=== PATIENT | male | born 1940 | race Caucasian/White ===

== ENCOUNTER 2016-07-29 10:32 | Emergency (ER) | payer OTHER ==
[~2016-07-29] VITALS: Ht 177.8 cm; Wt 84.4 kg
[2016-07-29 11:19] LABS: MCH 31.1 PG (29.0-34.0); MCHC 32.9 G/DL (30.0-36.0); MCV 94.5 FL (86-99); MEAN PLAT.VOLUME 10.6 uM^3 (9.0-12.4); PLATELET COUNT 145 K/uL (156-360); RBC DIS.WIDTH-CV 12.6 % (11.8-14.6); RBC DIS.WIDTH-SD 43.9 % (39-53); RED BLOOD COUNT 4.76 M/uL (4.00-5.50); WHITE BLOOD COUNT 9.6 K/uL (4.1-10.2)
[2016-07-29 11:30] LABS: CHLORIDE 109 mEq/L (99-109); POTASSIUM 4.7 mEq/L (3.7-5.4); SODIUM 144 mEq/L (136-147)
[2016-07-29 11:33] LABS: GLUCOSE 162 mg/dL (70-99)
[2016-07-29 11:34] LABS: ANION GAP 10 MEQ/L (2-14); TOTAL BILIRUBIN 1.3 mg/dL (0.0-1.0)
[2016-07-29 11:36] LABS: ALKALINE PHOSPHATASE 56 IU/L (3-129); GFR ESTIMATE (CALCULATED) 39 mL/min/
[2016-07-29 11:37] LABS: UREA NITROGEN (BUN) 34 mg/dL (9-23)
[2016-07-29 13:14] LABS: ADD MIUA? YES; BILIRUBIN NEGATIVE; BLOOD NEGATIVE; COLOR YELLOW ((YELLOW)); GLUCOSE (STRIP) NEGATIVE; KETONES 20; LEUKOCYTES NEGATIVE; NITRITE NEGATIVE; PROTEIN (STRIP) 30; SPECIFIC GRAVITY 1.025 (1.000-1.030); UROBILINOGEN 0.2 MG/DL (0.2-1.0)
[2016-07-29 13:23] LABS: BACTERIA RARE /HPF; EPITHELIAL CELLS NONE SEEN /HPF; HYALINE CASTS 0-5 /LPF; MUCUS TRACE /LPF; RED BLOOD CELLS TNTC /HPF (0-5); UCUL ADDED? NO
[2016-07-29 13:38] LABS: LIPASE 14 U/L (1.0-51.0)
[2016-07-29] MEDS ORDERED: COREG25 M1 PO (14:59)
[2016-07-29] MEDS ORDERED: ZOCOR20 MG PO (14:59)
[2016-07-29] MEDS ORDERED: PANTOPRAZOLE SO40 MG PO (14:59)
[2016-07-29] MEDS ORDERED: losartan potassium (15:00)
[2016-07-29] MEDS ORDERED: FLOMAX0.4 MG PO (15:38)
[2016-07-29 16:08] VITALS: BP 136/64
== END 2016-07-29 16:08 | disposition home or self-care (01) ==
LOC: EME 10:32 → EXP 10:32
DX: N13.2 Hydronephrosis with renal and ureteral calculous obstruction (principal); I10 Essential (primary) hypertension; Z79.82 Long term (current) use of aspirin; E78.5 Hyperlipidemia, unspecified
CPT/HCPCS: 74176; 80053; 81003; 83690; 85027; 99281; 99285; J2405; J7030